=== PATIENT | female | born 1980 | race American Indian/Alaskan Native ===

== ENCOUNTER 2017-02-16 11:51 | Emergency (ER) | payer OTHER ==
[2017-02-16] MEDS ORDERED: CATAPRES PO ONE (12:15)
--- NOTE | 2017-02-16 12:34 | Emergency Department Report ---
Entered by BOBO HERMAN, acting as scribe for KADI SCHWARTZ PA. Chief Complaint: Chest Pain Stated Complaint: MENTAL EVAL Time Seen by Provider: 02/16/17 12:12 - HPI History of Present Illness: Patient presents to the ED c/o left chest tightness that began 2 days ago. Pt states that she used a lot of unknown illicit drugs and consumed moderate amounts of EtOH 2 days ago. Reports nausea and vomiting (1 episode last night). Denies abdominal pain and fever. - ROS Review of Systems: All system are negative unless stated in HPI above. - Exam Vital Signs: Vital Signs 02/16/17 12:06 Temperature 98.5 F Pulse Rate 84 Respiratory 20 Rate Blood Pressure 165/120 Physical Exam: General: well nourished, well developed, nontoxic in appearance, in no acute distress Abdomen: soft, nontender to palpation in all quadrants Respiratory: clear lung sounds to auscultation bilaterally Cardiovascular: S1/S2 regular rate and rhythm. No murmur. MSE screening note: Focused history and physical exam performed. Due to findings the following was ordered: ED Medical Decision Making - Medical Decision Making Medical decision making: Patient seen by provider in triage area. Appropriate protocol activated and patient to main ED to be seen by provider ED Disposition for MSE Condition: Stable This documentation as recorded by the scribe,BOBO HERMAN,accurately reflects the service I personally performed and the decisions made by ,KADI SCHWARTZ PA.
[2017-02-16 12:51] LABS: Urine Drugs of Abuse Note Disclamer
[2017-02-16 12:57] LABS: Basophils % (Auto) 0.6 % (0.0-1.8); Eosinophils % (Auto) 0.2 % (0.0-4.3); Hematocrit 42.6 % (30.3-42.9); Hemoglobin 13.7 gm/dl (10.1-14.3); Mean Corpuscular HGB Conc 32 % (30-34); Mean Corpuscular Hemoglobin 27 pg (28-32); Mean Corpuscular Volume 85 fl (79-97); Platelet Count 255 K/mm3 (140-440); Red Blood Count 5.03 M/mm3 (3.65-5.03); Red Cell Distribution Width 15.6 % (13.2-15.2); White Blood Count 5.5 K/mm3 (4.5-11.0)
[2017-02-16 12:59] LABS: Bilirubin,Urine NEG (Negative); Blood,Urine NEG (Negative); Ketones,Urine 80 mg/dL (Negative); Leukocyte Esterase,Urine NEG (Negative); Mucus,Urine FEW /HPF; Nitrite,Urine NEG (Negative)
[2017-02-16 13:12] LABS: Anion Gap 21 mmol/L; BUN/Creatinine Ratio 6.66; Blood Urea Nitrogen 6 mg/dL (7-17); Calcium 9.1 mg/dL (8.4-10.2); Carbon Dioxide 22 mmol/L (22-30); Chloride 99.2 mmol/L (98-107); Glucose 85 mg/dL (65-100); Potassium 3.9 mmol/L (3.6-5.0); Sodium 138 mmol/L (137-145)
[2017-02-16] MEDS ORDERED: ZOFRAN ODT PO ONE (16:37)
[2017-02-16] MEDS ORDERED: TYLENOL #3 PO ONE (16:52)
[2017-02-16 17:55] VITALS: BP 121/65
--- NOTE | 2017-02-17 04:17 | Emergency Department Report ---
HPI - General Chief Complaint: Chest Pain Time Seen by Provider: 02/16/17 16:18 - HPI HPI: The patient is a 36 yo female presents for evaluation of chest pain. The patient reports chest pain since noon yesterday, greater than 24 hours ago, 9/ 10 in severity, squeezing in quality, left-sided location, constant since onset. The patient says her symptoms began at the using marijuana and ecstasy one day ago. The patient denies fever, trauma to the chest, cough, dyspnea, hemoptysis, unilateral leg swelling, oral contraceptive use, recent immobilization, history of DVT or PE, recent cancer, history of familial coagulation disorder. ED Past Medical Hx - Past Medical History Previous Medical History?: No - Surgical History Additional Surgical History: hyst - Social History Smoking Status: Current Every Day Smoker Substance Use Type: Alcohol, Other - Medications Home Medications: Home Medications Medication Instructions Recorded Confirmed Last Taken Type Ondansetron [Zofran TAB] 4 mg PO Q8HR PRN #15 tablet 02/16/17 Unknown Rx ED Review of Systems ROS: Stated complaint: MENTAL EVAL Other details as noted in HPI Constitutional: denies: fever ENT: denies: throat or neck pain Respiratory: denies: cough, shortness of breath Cardiovascular: reports chest pain Endocrine: denies unexplained weight loss or gain Gastrointestinal: denies: abdominal pain, nausea Genitourinary: denies: dysuria Musculoskeletal: denies: leg swelling Skin: denies: rash Neurological: denies: headache Hematological/Lymphatic: denies: easy bleeding or easy bruising Psych: denies sadness or hopelessness Physical Exam - Physical Exam Vital Signs: Vital Signs 02/16/17 02/16/17 02/16/17 12:06 12:20 15:36 Temperature 98.5 F 98.6 F Pulse Rate 84 84 67 Respiratory 20 18 Rate Blood Pressure 165/120 165/120 Blood Pressure 110/79 [Left] O2 Sat by Pulse 96 Oximetry Physical Exam: General: well-nourished, well-developed, no acute distress Head: Normocephalic, atraumatic Eyes: normal sclera ENT: Mucous membranes are pink and moist Neck: trachea midline, neck supple, No neck stiffness, no cervical adenopathy Respiratory: Breath sounds equal bilaterally, no wheezing, rales, or rhonchi Cardio: S1 and S2 present, no murmurs, rubs, gallops, capillary refill is brisk Abdomen: Normoactive bowel sounds, soft abdomen, no rigidity, no guarding or rebound tenderness Musc: No pitting edema Skin: No rash Neuro: no facial drooping, normal speech Psych: Normal affect ED Course Vital Signs 02/16/17 02/16/17 02/16/17 12:06 12:20 15:36 Temperature 98.5 F 98.6 F Pulse Rate 84 84 67 Respiratory 20 18 Rate Blood Pressure 165/120 165/120 Blood Pressure 110/79 [Left] O2 Sat by Pulse 96 Oximetry ED Medical Decision Making - Lab Data Result diagrams: 02/16/17 12:40 02/16/17 12:40 - Medical Decision Making The patient was seen and examined by myself. The patient is placed on a cardiac/vascular sonographer and continuous pulse ox. On initial evaluation, the patient was found to be in no distress. EKG was negative for findings suggestive of acute cardiac infarct. Labs and imaging are obtained. The patient given [place] 3 for pain and clonidine for her elevated blood pressure. Chest x-ray is negative for pneumothorax, focal consolidation, pulmonary vascular congestion, pleural effusion, or other obvious acute cardiopulmonary disease process. Lab results were non-concerning including levels of troponin, WBC, hemoglobin, hematocrit, electrolytes, renal function. The patient was reevaluated and reported that her pain was completely resolved. As the patient has a LAURYN risk score less than 2 , and a well's score less than 2, the patient is at low risk of ACS or pulmonary emboli etiology of their symptoms. The patient is stable for discharge with outpatient follow-up. The patient is given follow-up and return instructions. The patient expressed understanding and agreed with the plan. The patient is discharged in stable condition. Critical care attestation.: If time is entered above; I have spent that time in minutes in the direct care of this critically ill patient, excluding procedure time. ED Disposition Clinical Impression: Acute chest pain, Substance abuse, Hypertensive urgency Disposition: DISCHARGED TO HOME OR SELFCARE Is pt being admited?: No Does the pt Need Aspirin: No Condition: Stable Instructions: Chest Pain (ED), Polysubstance Abuse (ED) Referrals: PRIMARY CARE, [Primary Care Provider] - 3-5 Days Time of Disposition: 17:36
--- NOTE | 2017-02-17 08:08 | XRay Report ---
AP CHEST: HISTORY: chest pain AP view of the chest demonstrates a normal mediastinal and cardiac contour with clear lungs and normal bony and soft tissue structures. IMPRESSION: Unremarkable AP chest.
== END 2017-02-16 17:56 | disposition home or self-care (01) ==
LOC: ED 11:51
DX: R07.9 Chest pain, unspecified (principal); F19.10 Other psychoactive substance abuse, uncomplicated; R03.0 Elevated blood-pressure reading, without diagnosis of hypertension; F17.200 Nicotine dependence, unspecified, uncomplicated
CPT/HCPCS: 36415; 71010; 80048; 80307; 81001; 83690; 84484; 84703; 85025; 93005; 93010; Q0162